=== PATIENT | female | born 1985 | race Caucasian/White ===

== ENCOUNTER 2018-12-24 13:25 | Emergency (ER) | payer MEDICAID, OTHER ==
[~2018-12-24] VITALS: Ht 165.1 cm; Wt 111.0 kg
[2018-12-24 13:31] VITALS: BP 147/68
== END 2018-12-24 14:49 | disposition home or self-care (01) ==
LOC: ER 13:25
DX: H60.92 Unspecified otitis externa, left ear (principal)
CPT/HCPCS: 99283

== ENCOUNTER 2019-01-20 06:46 | Inpatient (IN) | payer MEDICAID, OTHER ==
[~2019-01-20] VITALS: Ht 162.6 cm; Wt 116.1 kg
[2019-01-20] MEDS ORDERED: NALOXONE HCL 0.4 MG/ML 1ML VIAL IM PRN (08:15)
[2019-01-20] MEDS ORDERED: LACTATED RINGERS 1,000 ML IV SCH ×2 (08:15→08:30)
[2019-01-20] MEDS ORDERED: CARBOPROST TROMETHAMINE 250 MCG/ML AMPUL IM PRN (08:15)
[2019-01-20] MEDS ORDERED: LIDOCAINE HCL 1% 20ML VIAL (Pyxis) INJ INFIL SCH (08:15)
[2019-01-20] MEDS ORDERED: DEXT 5%/LR + PITOCIN 20UNITS/L 1,000 ML IV SCH ×2 (08:15→19:11)
[2019-01-20] MEDS ORDERED: METHYLERGONOVINE MALEATE 0.2 MG/ML IM PRN (08:15)
[2019-01-20 09:11] LABS: BASOPHILS % 0.4 % (0.0-2.0); EOSINOPHILS % 1.7 % (0.0-5.0); HEMATOCRIT. 37.2 % (36.0-48.0); HEMOGLOBIN. 12.5 g/dL (12.0-16.0); LYMPHOCYTES % 16.5 % (20.0-50.0); MEAN CORPUSCULAR HEMOGLOBIN 28.9 pg (28.0-32.0); MEAN CORPUSCULAR VOLUME 86.3 fL (81.0-99.0); MEAN PLATELET VOLUME 9.2 fl (7.4-10.4); MONOCYTES % 7.4 % (2.0-8.0); PLATELET 177 x1000/uL (130-400); RED BLOOD CELL COUNT 4.31 mill/uL (4.2-5.4); RED CELL DISTRIBUTION WIDTH 15.1 % (11.6-14.6)
[2019-01-20 09:13] LABS: PARTIAL THROMBOPLASTIN TIME 29.5 sec (23.4-31.0)
[2019-01-20 09:17] LABS: CLARITY URINE CLOUDY (CLEAR); COLOR URINE YELLOW (YELLOW); KETONES URINE NEGATIVE (NEGATIVE); LEUKOCYTE ESTERASE URINE TRACE (NEGATIVE); NITRITE URINE NEGATIVE (NEGATIVE); OCCULT BLOOD URINE 3+ (NEGATIVE); PROTEIN URINE TRACE (NEGATIVE); SPECIFIC GRAVITY URINE 1.021 (1.005-1.030); UROBILINOGEN URINE 0.2 E.U./dL (0.2-1.0)
[2019-01-20 09:39] LABS: *AMPHETAMINES SCREEN URINE NEGATIVE (NEGATIVE); *BARBITURATES SCREEN URINE NEGATIVE (NEGATIVE); *BENZODIAZEPINES SCREEN URINE NEGATIVE (NEGATIVE); *COCAINE SCREEN URINE NEGATIVE (NEGATIVE); CANNABINOID URINE SCREEN NEGATIVE (NEGATIVE); METHADONE URINE SCREEN NEGATIVE (NEGATIVE); OPIATES URINE SCREEN NEGATIVE (NEGATIVE); PHENCYCLIDINE URINE SCREEN NEGATIVE (NEGATIVE)
[2019-01-20 12:13] LABS: HEPATITIS B SURFACE ANTIGEN NEGATIVE
[2019-01-20] MEDS: BUTORPHANOL TARTRATE 2 MG/ML VIAL IV PRN ×2 (12:31→15:22)
[2019-01-20] MEDS ORDERED: HEMORRHOIDAL SUPP PR PRN (19:15)
[2019-01-20] MEDS ORDERED: BISACODYL 10MG SUPP PR PRN (19:15)
[2019-01-20] MEDS ORDERED: BENZOCAINE/LANOLIN/ALOE VERA SPRAY TOP PRN (19:15)
[2019-01-20] MEDS ORDERED: ACETAMINOPHEN WITH CODEINE 300/30MG TABLET PO PRN (19:15)
[2019-01-20] MEDS ORDERED: LANOLIN OINT 7GM TUBE TOP PRN (19:15)
[2019-01-20 19:30] VITALS: BP 143/66
[2019-01-20 20:00] VITALS: BP 125/64
[2019-01-20] MEDS: IBUPROFEN 400MG TABLET PO PRN (20:45)
[2019-01-20] MEDS: DOCUSATE SODIUM 100MG CAPSULE PO SCH (20:45)
[2019-01-20] MEDS: MAGNESIUM/ALUMINUM HYDROXIDE/SIMETHICONE 30ML UDC PO SCH (20:47)
[2019-01-20] MEDS: SIMETHICONE 80MG TABLET CHEW PO SCH (20:48)
[2019-01-21] MEDS: IBUPROFEN 400MG TABLET PO PRN (02:11)
[2019-01-21 04:00] VITALS: BP 106/55
[2019-01-21 07:11] LABS: BASOPHILS % 0.2 % (0.0-2.0); EOSINOPHILS % 0.4 % (0.0-5.0); HEMATOCRIT. 34.9 % (36.0-48.0); HEMOGLOBIN. 11.7 g/dL (12.0-16.0); LYMPHOCYTES % 13.6 % (20.0-50.0); MEAN CORPUSCULAR VOLUME 86.1 fL (81.0-99.0); MEAN PLATELET VOLUME 9.6 fl (7.4-10.4); MONOCYTES % 8.3 % (2.0-8.0); NEUTROPHILS % 77.5 % (40.0-76.0); PLATELET 160 x1000/uL (130-400); RED BLOOD CELL COUNT 4.05 mill/uL (4.2-5.4); RED CELL DISTRIBUTION WIDTH 15.1 % (11.6-14.6)
[2019-01-21 08:30] VITALS: BP 126/70
[2019-01-21] MEDS: ACETAMINOPHEN WITH CODEINE 300/30MG TABLET PO PRN ×3 (08:43→23:40)
[2019-01-21] MEDS: SIMETHICONE 80MG TABLET CHEW PO SCH ×3 (08:44→21:00)
[2019-01-21] MEDS: FERROUS SULFATE 325MG TABLET PO SCH ×2 (08:44→15:37)
[2019-01-21] MEDS ORDERED: TETANUS, DIPHTHERIA, PERTUSSIS VAC/PF 0.5ML (>7YR OLD) IM ONE (09:00)
[2019-01-21 17:39] VITALS: BP 129/69
[2019-01-21] MEDS: MAGNESIUM/ALUMINUM HYDROXIDE/SIMETHICONE 30ML UDC PO SCH (21:00)
[2019-01-21] MEDS: DOCUSATE SODIUM 100MG CAPSULE PO SCH ×3 (21:00→21:45)
[2019-01-21 22:00] VITALS: BP 128/72
[2019-01-22 06:00] VITALS: BP 121/71
[2019-01-22] MEDS: ACETAMINOPHEN WITH CODEINE 300/30MG TABLET PO PRN (06:07)
[2019-01-22 07:42] VITALS: BP 122/71
[2019-01-22] MEDS ORDERED: FERR325T6 MT (08:42)
[2019-01-22] MEDS ORDERED: IBUP-2030 MT (08:42)
[2019-01-22] MEDS ORDERED: MULT1TAB67 MT (08:42)
[2019-01-22] MEDS ORDERED: MULT1CAP34 MT (08:42)
[2019-01-22] MEDS: SIMETHICONE 80MG TABLET CHEW PO SCH (08:57)
[2019-01-22] MEDS: MAGNESIUM/ALUMINUM HYDROXIDE/SIMETHICONE 30ML UDC PO SCH (08:57)
[2019-01-22] MEDS: FERROUS SULFATE 325MG TABLET PO SCH (08:57)
[2019-01-22] MEDS: IBUPROFEN 400MG TABLET PO PRN (08:57)
[2019-01-22 09:59] LABS: BASOPHILS % 0.4 % (0.0-2.0); EOSINOPHILS % 1.7 % (0.0-5.0); HEMATOCRIT. 34.9 % (36.0-48.0); HEMOGLOBIN. 11.9 g/dL (12.0-16.0); LYMPHOCYTES % 16.7 % (20.0-50.0); MEAN CORPUSCULAR HEMOGLOBIN 29.2 pg (28.0-32.0); MEAN PLATELET VOLUME 9.1 fl (7.4-10.4); MONOCYTES % 5.5 % (2.0-8.0); NEUTROPHILS % 75.7 % (40.0-76.0); PLATELET 163 x1000/uL (130-400); RED BLOOD CELL COUNT 4.06 mill/uL (4.2-5.4); RED CELL DISTRIBUTION WIDTH 15.7 % (11.6-14.6)
== END 2019-01-22 13:00 | disposition home or self-care (01) | DRG 560 ==
LOC: OBSVTOIN 06:46 → 8 EST LDRP 06:46 → 8EST 19:59
PROVIDERS: ADMIT Obstetrics & Gynecology; ATTEND Obstetrics & Gynecology
PROC: 10E0XZZ Delivery of Products of Conception, External Approach (ICD-10-PCS; principal; 2019-01-20)
DX: O77.0 Labor and delivery complicated by meconium in amniotic fluid (principal); Z37.0 Single live birth; Z3A.39 39 weeks gestation of pregnancy
CPT/HCPCS: 36415; 76805; 80305; 81003; 86592; 86703; 86762; 86850; 86900; 87340; 90715; 99281; J0595; J2310; J2590; J7120